=== PATIENT | male | born 1980 | race Caucasian/White ===

== ENCOUNTER 2020-03-04 00:46 | Emergency (ER) | payer SELFPAY ==
[~2020-03-04] VITALS: Ht 182.9 cm; Wt 84.0 kg
[2020-03-04] MEDS ORDERED: SODIUM CHLORIDE 0.9% 1,000 ML IV ONE (01:12)
[2020-03-04] MEDS ORDERED: ONDANSETRON HCL 4MG/2ML INJ IV STA (01:12)
[2020-03-04] MEDS ORDERED: MORPHINE SULFATE 4 MG/ML CPJ (NOT FOR IM USE) IV STA (01:12)
[2020-03-04 05:40] VITALS: BP 125/79
== END 2020-03-04 05:50 | disposition home or self-care (01) ==
LOC: ER 00:59
DX: S09.8XXA Other specified injuries of head, initial encounter (principal); X58.XXXA Exposure to other specified factors, initial encounter; Y93.89 Activity, other specified; Y92.89 Other specified places as the place of occurrence of the external cause; Y99.8 Other external cause status
CPT/HCPCS: 70450; 71045; 73030; 93005; 99285; J2270; J2405; J7030